=== PATIENT | female | born 1930 | race Asian ===

== ENCOUNTER 2018-05-03 12:00 | Emergency (ER) | payer OTHER ==
[~2018-05-03] VITALS: Ht 160 cm; Wt 68.0 kg
[2018-05-03 13:16] LABS: PLATELET COUNT 202 K/uL (152-353)
[2018-05-03 13:20] LABS: PARTIAL THROMBOPLASTIN TIME 33.4 SECONDS (24.5-33.6)
[2018-05-03 13:33] VITALS: BP 144/75; TEMP 98.6
== END 2018-05-03 13:38 | disposition home or self-care (01) ==
LOC: ED 12:00 → EDBD 12:00 → ED 13:38
DX: Z95.2 Presence of prosthetic heart valve (principal); Z79.01 Long term (current) use of anticoagulants
CPT/HCPCS: 36415; 85027; 85610; 85730; 99282